=== PATIENT | male | born 1990 | race American Indian/Alaskan Native ===

== ENCOUNTER 2019-10-30 02:10 | Emergency (ER) | payer SELFPAY ==
[2019-10-30 02:30] VITALS: BP 120/80
[2019-10-30] MEDS ORDERED: IBUPROFEN 600 MG TAB PO ONE (04:10)
[2019-10-30] MEDS ORDERED: ONDANSETRON 4 MG ODT TAB PO ONE (04:10)
[2019-10-30] MEDS ORDERED: TETANUS,DIPH,PERTUSS(ACELL) VACCINE 0.5 ML SYRINGE IM ONE (04:10)
[2019-10-30] MEDS ORDERED: NEOMY 3.5 MG/BACIT 400 UNITS/POLY B 5000 UNITS/GM OINT PACKET TP ONE (04:10)
[2019-10-30] MEDS ORDERED: SULFAMETHOXAZOLE/TRIMETHOPRIM 800/160MG DS TAB PO ONE (04:11)
[2019-10-30] MEDS ORDERED: oxyCODONE /ACETAMINOPHEN 5-325MG TAB PO PRN (04:11)
--- NOTE | 2019-10-30 04:55 | Emergency Department Report ---
Upper Extremity - HPI Chief Complaint: Wound/Laceration Stated Complaint: LT HAND LAC Upper Extremity: Left Hand (left palm laceration) Occurred When: 3 Days Mechanism: Other (Barbed wire cut his left palm) Severity: severe Symptoms: Yes Pain with Movement (left palm), Yes Laceration or Abrasion (left palm), No Deformity, No Limited Range of Movement, No Numbness, No Weakness, No Swelling, No Bruising/Ecchymosis Other History: Patient is a 28-year-old -Al[place]ian male with no past medical history who presents to the ED with continued acute onset persistent severe left palm pain after he jumped a fence and a barbed wire cut his left p lynne extensively 3 days ago when running away from the law enforcement officers. Patient states that he was thereafter as tender and the left hand was cleaned and dressed and most sent to senior care 3 days ago. Patient states that in the last 24 hours the pain in the left palm has worsened. The patient denies fever, chills, nausea, vomiting, numbness and tingling or weakness of the left palm, dizziness, chest pain or shortness of breath, head or neck injuries and back pain. Patient states that he is not up-to-date with his tetanus vaccination. ED Review of Systems ROS: Stated complaint: LT HAND LAC Other details as noted in HPI Constitutional: denies: chills, fever Eyes: denies: eye pain, eye discharge, vision change ENT: denies: ear pain, throat pain Respiratory: denies: cough, shortness of breath, wheezing Cardiovascular: denies: chest pain, palpitations Endocrine: no symptoms reported Gastrointestinal: denies: abdominal pain, nausea, diarrhea Genitourinary: denies: urgency, dysuria Musculoskeletal: arthralgia (left palm pain due to ulcerated laceration wounds), myalgia. denies: back pain, joint swelling Skin: other (Ulcerated left palm laceration wounds with swelling). denies: rash, lesions Neurological: denies: headache, weakness, paresthesias Psychiatric: denies: anxiety, depression Hematological/Lymphatic: denies: easy bleeding, easy bruising ED Past Medical Hx - Past Medical History Previous Medical History?: Yes Additional medical history: Hemophillia - Surgical History Past Surgical History?: No - Social History Smoking Status: Current Every Day Smoker Substance Use Type: Alcohol, Cocaine, Marijuana - Medications Home Medications: Home Medications Medication Instructions Recorded Confirmed Last Taken Type Acetaminophen/Codeine [Tylenol 1 tab PO Q6H PRN #12 tab 10/30/19 Unknown Rx /Codeine # 3 tab] Ibuprofen [Motrin] 600 mg PO Q8H PRN #24 tablet 10/30/19 Unknown Rx Mupirocin [Bactroban 2% OINT] 1 applic TP Q8H #1 tube 10/30/19 Unknown Rx Sulfamethoxazole/Trimethoprim 1 each PO Q12H #20 tablet 10/30/19 Unknown Rx [Bactrim DS TAB] Upper Extremity Exam - Exam General: Vital signs noted. No distress. Alert and acting appropriately. Head and Torso: No HEENT Abnormality, No Neck Tenderness, No Chest/Lungs Abnormality, No Abdominal Tenderness, No Back Tenderness Shoulder Exam: Yes Normal Range of Motion in Shoulder, No Shoulder Tenderness, No Clavicle Tenderness, No Shoulder Deformity, No AC Joint Tenderness Arm Exam: No Arm/Humerus Tenderness, No Arm Deformity Elbow: Yes Normal Range of Motion in Elbow, No Elbow Tenderness, No Elbow Deformity Forearm: No Forearm Tenderness, No Forearm Deformity, No Pain with Pronation, No Pain with Supination Wrist: Yes Normal ROM in Wrist, No Wrist Tenderness, No Wrist Deformity, No Snuffbox Tenderness, No Pain with Axial Thumb Compression Hand: Yes Hand Tenderness (left palm due to ulcerated wounds), Yes Normal ROM in Digit(s), No Hand Deformity, No Digit Tenderness, No Digit(s) Deformity, No Tendon Dysfunction CMS Exam: Yes Broken Skin (left palm due to ulcerated open wounds), Yes Normal Distal Pulses, Yes Normal Capillary Refill, Yes Normal Distal Sensation Hand L/R Front: 1 - Ulcerated left palm puncture wounds with mild swelling and tenderness ED Course Vital Signs 10/30/19 02:28 Temperature 98.1 F Pulse Rate 68 Respiratory 150 H Rate Blood Pressure 120/80 O2 Sat by Pulse 100 Oximetry ED Medical Decision Making - Medical Decision Making This is a 28-year-old male who presented to the ED with complaint of painful ulcerated swollen left palm due to a recent accidental puncture wound by a barbed wire fence 3 days ago. In the ED, patient is alert and oriented 3 and is in distress but appears to be in pain. Patient left palm puncture wounds were cleaned thoroughly with Betadine and solution and Neosporin applied to the wound. Patient was treated for pain in the ED. Patient is received. Tetanus vaccination. The wound was then dressed appropriately and the patient was discharged home on oral antibiotics and advised follow-up with his primary care physician in 5-7 days for reevaluation or return to the ED immediately if symptoms get worse. - Differential Diagnosis puncture wounds; cellulitis; left hand cellulitis; hand fracture Critical care attestation.: If time is entered above; I have spent that time in minutes in the direct care of this critically ill patient, excluding procedure time. ED Disposition Clinical Impression: Puncture wound of left hand with infection Qualifiers: Encounter type: initial encounter Qualified Code(s): S61.432A - Puncture wound without foreign body of left hand, initial encounter; L08.9 - Local infection of the skin and subcutaneous tissue, unspecified Laceration of left palm Qualifiers: Encounter type: initial encounter Qualified Code(s): S61.412A - Laceration without foreign body of left hand, initial encounter Disposition: TO HOME OR SELFCARE Is pt being admited?: No Does the pt Need Aspirin: No Condition: Stable Instructions: Puncture Wound (ED), Laceration (ED) Additional Instructions: Take medications with food, drink plenty of fluids and follow-up with her primary care physician in 5-7 days for reevaluation. Return to the ED immediately if symptoms get worse. Prescriptions: Sulfamethoxazole/Trimethoprim [Bactrim DS TAB] 1 each PO Q12H #20 tablet Mupirocin [Bactroban 2% OINT] 1 applic TP Q8H #1 tube Ibuprofen [Motrin] 600 mg PO Q8H PRN #24 tablet PRN Reason: Pain Acetaminophen/Codeine [Tylenol /Codeine # 3 tab] 1 tab PO Q6H PRN #12 tab PRN Reason: Pain , Severe (7-10) Referrals: [facility] [Outside] - 7-10 days Time of Disposition: 05:01 Print Language: KHMER
== END 2019-10-30 05:21 | disposition home or self-care (01) ==
LOC: ED 02:10
DX: S61.412A Laceration without foreign body of left hand, initial encounter (principal); S61.432A Puncture wound without foreign body of left hand, initial encounter; F17.200 Nicotine dependence, unspecified, uncomplicated; F10.10 Alcohol abuse, uncomplicated; F12.10 Cannabis abuse, uncomplicated; Z79.899 Other long term (current) drug therapy; Z88.0 Allergy status to penicillin; W26.8XXA Contact with other sharp object(s), not elsewhere classified, initial encounter; Y93.89 Activity, other specified; Y92.89 Other specified places as the place of occurrence of the external cause; Y99.8 Other external cause status
CPT/HCPCS: 90471; 90715; A6250; Q0162